=== PATIENT | male | born 1960 | race Caucasian/White ===

== ENCOUNTER 2017-09-24 09:44 | Day surgery (SDC) | payer BC ==
[2017-09-24] MEDS ORDERED: PROPOFOL 10 MG/ML VIAL IV ONE (09:45)
[2017-09-24] MEDS ORDERED: LIDOCAINE 2% MDV (20MG/ML) 20ML VIAL IV ONE (09:45)
--- NOTE | 2017-09-28 07:20 | Operative Note ---
DATE OF SURGERY: 09/24/2017 REQUESTING PHYSICIAN: Ericka Grimes MD, FACP SURGEON: Paco Reina MD POSTOPERATIVE DIAGNOSES: 1. A 3 mm sessile polyp in the descending colon that was removed by cold biopsy forceps. 2. Left-sided colonic diverticulosis. OPERATION: COLONOSCOPY and exam. REASON FOR PROCEDURE: This is a 56-year-old male with average risk for colorectal cancer who presented for screening colonoscopy. SEDATION: Sedation as per anesthesia. Pulse oximetry was monitored throughout the duration of the procedure to maintain O2 saturation of 90% or greater. Supplemental oxygen was administered via nasal cannula. Cardiac and vital signs were monitored throughout the duration of the procedure and they were stable. PROCEDURE: Description of the procedure of colonoscopy, risks, and alternatives to the procedure including the risk of bleeding and perforation among others were explained to the patient who voiced understanding and agreed to have the procedure done. A physical examination was performed and the patient was found stable for sedation. The patient was then placed in the left lateral position and sedation was initiated. Digital rectal exam was performed and showed small external hemorrhoids with no palpable rectal masses. A lubricated Olympus PCF-180AL colonoscope was then inserted into the rectum under direct visualization and was advanced to the cecum without difficulty. The ileocecal valve and appendiceal orifice were identified and photographed. The colonic mucosa was carefully examined upon insertion of the colonoscope. There were scattered diverticula noted in the sigmoid and descending colon. In the descending colon was a 3 mm sessile polyp that was noted and was removed by cold biopsy forceps. The bowel preparation was good. The colonoscope was then withdrawn while carefully examining the colonic mucosal surfaces. No other lesions were noted. In the rectum, retroflexion was performed and grade 1 internal hemorrhoids were noted. The colonoscope was then withdrawn and the procedure was terminated. The patient tolerated the procedure well without any complications. The patient remained with stable vital signs and was sent to the recovery room. PLAN AND RECOMMENDATIONS: 1. The patient is to be on a high-fiber diet. 2. The patient is to have repeat colonoscopy in 5 or 10 years depending on the histology of the polyp. Thank you for allowing me to participate in the care of this patient. CC: ERICKA GRIMES MD, FACP [facility]ALSatya
== END 2017-09-24 11:28 | disposition home or self-care (01) ==
LOC: HOP 09:44
PROVIDERS: ATTEND Internal Medicine Gastroenterology
DX: Z12.11 Encounter for screening for malignant neoplasm of colon (principal); D12.4 Benign neoplasm of descending colon; K57.30 Diverticulosis of large intestine without perforation or abscess without bleeding; E78.00 Pure hypercholesterolemia, unspecified; I10 Essential (primary) hypertension

== ENCOUNTER 2019-02-14 22:52 | Emergency (ER) | payer BC ==
[2019-02-14] MEDS ORDERED: CLINDAMYCIN 600MG/50ML PREMIX 600 MG/50 ML BAG IVPB ONE (22:56)
[2019-02-14] MEDS ORDERED: ONDANSETRON HCL IV 4 MG/2 ML VIAL IVP ONE (22:58)
[2019-02-14] MEDS ORDERED: 0.9 % SODIUM CHLORIDE 1000ML 1,000 ML IV SCH (23:00)
--- NOTE | 2019-02-14 23:02 | Emergency Department Record ---
History of Present Illness - General Chief Complaint: Syncope Stated Complaint: VOMITING,HEART RACING,LOC Time Seen by Provider: 02/14/19 22:55 Source: Patient, Family Mode of Arrival: Wheelchair Limitations: Altered mental status (Intoxicated) - History of Present Illness Initial Comments: 58 yo male presents to ED for evaluation of difficulty in breathing. Patient's reports that the patient drank several beers this evening (not abnormal for the patient), went into the bathroom as he felt dizzy and that he might vomit. SO reports that the patient started vomiting, lowered to the ground, vomited again and breathed in some vomit. SO reports that the patient was then brought to ED for evaluation. Patient denies headache or anticoagulation use, does report history of HTN, reports RLE calf pain for 2 months, no history of DVT previously. MD Complaint: Collapsed Injuries Sustained Associated with Event: None Current Symptoms: Nausea, Vertigo, Shortness of breath Treatments Prior to Arrival: None - Zachariah Coma Scale Eye Response: (4) Open spontaneously Motor Response: (6) Obeys commands Verbal Response: (5) Oriented [place] Total: 15 - Related Data Previous Rx's Medication Instructions Recorded Amoxicillin/Potassium Clav 1 each PO BID #20 tablet 11/25/15 [Augmentin 875Mg/125Mg] Allergies Allergy/AdvReac Type Severity Reaction Status Date / Time No Known Drug Intolerances Allergy Unknown PT UNSURE Verified 02/14/19 23:02 OF REACTION Review of Systems ROS unobtainable: Due to mental status Past Medical History - SOCIAL HISTORY Smoking Status: Never smoker Alcohol Use Comment: moderate - RESPIRATORY Hx Respiratory Disorders: Yes Hx Sleep Apnea: Yes Hx of CPAP: Yes - CARDIOVASCULAR Hx Cardio Disorders: Yes Hx Hypertension: Yes (well controlled with meds) Comment:: high cholesterol - NEURO Hx Neuro Disorders: No - GI Hx GI Disorders: Yes Hx Diverticulitis: Yes Hx Reflux: Yes (hx of) Hx Rectal Bleeding: Yes - Hx Genitourinary Disorders: No - ENDOCRINE Hx Endocrine Disorders: No - MUSCULOSKELETAL Hx Musculoskeletal Disorders: Yes Hx Arthritis: Yes - PSYCH Hx Psych Problems: Yes Hx Depression: Yes (job change) - HEMATOLOGY/ONCOLOGY Hx Hematology/Oncology Disorders: No Family Medical History Hx Cancer: Father *Cancer Comment: prostate Hx Heart Disease: Father, Brother/Sister Physical Exam - General General Appearance: Alert, Cooperative, Moderate distress Limitations: Altered mental status (Intoxicated on examination) - Head Head exam: Atraumatic, Normocephalic, Normal inspection Head exam detail: negative: Abrasion, Contusion, Mayes's sign, General tenderness, Hematoma, Laceration - Eye Eye exam: Normal appearance. negative: Conjunctival injection, Periorbital swelling, Periorbital tenderness, Scleral icterus - ENT Ear exam: negative: Auricular hematoma, Auricular trauma Nasal Exam: negative: Active bleeding, Discharge, Dried blood, Foreign body Mouth exam: negative: Drooling, Laceration, Muffled voice, Tongue elevation - Neck Neck exam: Normal inspection. negative: Meningismus, Tenderness - Respiratory Respiratory exam: Decreased breath sounds, Respiratory distress. negative: Rales, Rhonchi, Stridor - Cardiovascular Cardiovascular Exam: Regular rate, Normal rhythm, Normal heart sounds - GI/Abdominal GI/Abdominal exam: Soft. negative: Rebound, Rigid, Tenderness - Rectal Rectal exam: Deferred - exam: Deferred - Extremities Extremities exam: negative: Pedal edema, Tenderness - Back Back exam: Denies: CVA tenderness (R), CVA tenderness (L) - Neurological Neurological exam: Alert. negative: Motor sensory deficit - Psychiatric Psychiatric exam: Normal affect, Normal mood - Skin Skin exam: Normal color. negative: Abrasion Type of lesion: negative: abrasion Course - Reevaluation(s) Reevaluation #1: 02/14/19 23:01 Patient started on NRB at 15 Liters, oxygen saturation 93% at this time. Portable chest ordered and being performed at this time. IVFs, Clindamycin ordered to infuse. Laboratory studies sent to lab. Will monitor closely for the need for further airway intervention. 02/14/19 23:07 EKG: NSR 81 Normal axis, normal intervals No acute ST-T wave changes Reevaluation #2: 02/14/19 23:30 Laboratory studies were reviewed and appear grossly unremarkable for an acute process. Patient and his SO were updated on all results, STAT CT Brain and CTA Chest ordered to exclude PE. Reevaluation #3: 02/15/19 00:06 CT Head and CTA chest were reviewed personally, no evidence for intracranial bleed: CTA Chest: No evidence for PE, bilateral interstitial processes appear present L>R. Geoffrey contacted for ICU bed placement. Reevaluation #4: 02/15/19 00:22 CT Head: No acute intracranial injury CTA Chest: No PE Findings appear c/w broncho-pulmonary pneumonia Zosyn ordered to infuse following Clindamycin, case was discussed with Dr. Pinon, will accept admission to ICU. Awaiting bed placement. Medical Decision Making - Lab Data Result diagrams: 02/14/19 22:55 02/14/19 22:55 Critical Care Time Critical Care Time: Yes Total Critical Care Time: 90 Critical Care Time: Diagnosis and treatment of aspiration pneumonia, exclusion of acute intra- cranial bleed/PE, laboratory interpretation, CT imaging interpretation, EKG in terpretation, and arrangement of transfer for ICU admission, frequent updates with the patient's SO, frequent reassessments. Disposition Disposition: Transfer Clinical Impression: Hypoxia Aspiration pneumonia Qualifiers: Aspiration pneumonia type: unspecified Laterality: bilateral Lung location: unspecified part of lung Qualified Code(s): J69.0 - Pneumonitis due to inhalation of food and vomit Disposition: Acute Care Hospital Transfer Transfer To: [facility] Reason For Transfer: ICU admission Accepting Physician: Kathrin Time Discussed w/Accepting Physician: 00:25 Condition: (3) Guarded Forms: Patient Portal Access Time of Disposition: 00:25 Quality - Quality Measures Quality Measures: N/A - Blood Pressure Screening Does Patient Have Any of the Following: No Blood Pressure Classification: Normal BP Reading Systolic Measurement: 112 Diastolic Measurement: 75 Screening for High Blood Pressure: < Normal BP, F/U Not Required > [G8783]
[2019-02-14 23:09] LABS: ABSOLUTE NEUTROPHIL COUNT 4.82; BASO % 0.1 % (0-6); EOS % 0.9 % (0-6); GRAN % 72.3 % (47-80); HEMATOCRIT 45.2 % (42.0-52.0); HEMOGLOBIN 16.2 gm/dl (14.0-18.0); LYMPH % 19.5 % (16-45); MEAN CORPUSCULAR HEMOGLOBIN 33.3 pg (27-33); MEAN CORPUSCULAR HGB CONC 35.8 g/dl (32-36); MEAN PLATELET VOLUME 10.3 fl (7.4-10.4); MONO % 7.2 % (0-9); PLATELET COUNT 247 K/uL (130-400); RED BLOOD COUNT 4.86 M/uL (4.40-5.70); RED CELL DISTRIBUTION WIDTH 12.1 % (11.5-14.5); WHITE BLOOD COUNT W/O DIFF 6.7 K/uL (4.2-12.2)
[2019-02-14 23:18] LABS: BLOOD UREA NITROGEN 12 mg/dL (6-20); CREATININE 1.2 mg/dL (0.7-1.2); EST GLOMERULAR FILTRATION RATE > 60 mL/min; TOTAL PROTEIN 7.4 g/dL (6.6-8.7)
[2019-02-14 23:20] LABS: GLUCOSE,RANDOM 133 mg/dL (74-109)
[2019-02-14 23:23] LABS: ALB/GLOB RATIO 1.6 (1.1-1.8); ALBUMIN 4.5 g/dL (4.0-5.0); ALT/SGPT 48 U/L (<41); AST/SGOT 33 U/L (10.0-50.0)
[2019-02-14 23:29] LABS: ALKALINE PHOSPHATASE 75 U/L (40-129)
[2019-02-15] MEDS ORDERED: PIPERACILLIN SODIUM/TAZOBACTAM 4.5 GM in 0.9 % SODIUM CHLORIDE 100ML 100 ML IVPB ONE (00:15)
--- NOTE | 2019-02-15 14:25 | RADIOLOGY REPORT ---
EXAM: PORTABLE CHEST HISTORY: SYNCOPE WITH VOMITING. COUGH. TECHNIQUE: A single mobile view of the chest was obtained. Comparison: None. FINDINGS: The heart projects at the upper limits of normal in size. No pulmonary venous hypertension is seen. Mixed reticulonodular and alveolar opacities are noted in the perihilar and basilar portions of the left lung and to a lesser degree the right lung base. Diagnostic considerations include pneumonitis and edema. The lungs and pleural spaces are otherwise clear. No acute osseous abnormality. IMPRESSION: MIXED RETICULONODULAR AND ALVEOLAR OPACITIES IN THE PERIHILAR AND BASILAR PORTIONS OF THE LEFT LUNG AND MINOR RETICULONODULAR OPACITIES WITHIN THE RIGHT LUNG BASE. DIAGNOSTIC CONSIDERATIONS INCLUDE PNEUMONIA AND EDEMA. JOB NUMBER: [id number] MTDD
--- NOTE | 2019-02-15 18:50 | CT SCAN REPORT ---
EXAM: CT SCAN HEAD WO CONTRAST HISTORY: DIFFICULTY IN BREATHING. POSSIBLE ASPIRATION. TECHNIQUE: Routine noncontrast CT of the brain. COMPARISON: None. FINDINGS: The ventricles and subarachnoid spaces are normal in size. No area of abnormally increased or decreased attenuation is noted throughout the brain substance. No convincing abnormal extra-axial fluid collection. No acute skull abnormality. There is minor mucosal thickening within the maxillary sinuses and several bilateral ethmoid air cells. The orbits, as visualized, are unremarkable. IMPRESSION: 1. NO CT EVIDENCE OF ACUTE INTRACRANIAL ABNORMALITY NOR SKULL FRACTURE. 2. MINOR MUCOSAL THICKENING IN SEVERAL PARANASAL SINUSES. JOB NUMBER: [id number]
--- NOTE | 2019-02-15 19:39 | CT ANGIOGRAM REPORT ---
EXAM: CT ANGIOGRAM CHEST CTA w contrast HISTORY: SYNCOPE AND VOMITING WITH HYPOXIA. POSSIBLE ASPIRATION. TECHNIQUE: Routine CTA examination of the chest is performed utilizing a pulmonary embolus protocol with 84 mL of Isovue-350 utilized. Maximum intensity projection reformatted images are generated and reviewed. COMPARISON: Portable chest dated 02/14/2019 at 23:09. FINDINGS: Opacification of the pulmonary arteries is satisfactory for interpretation though evaluation of the segmental arteries, particularly the lower lobe segmental arteries, is limited by motion artifact. No luminal filling defect is noted in the outflow tract, main arteries, lobar arteries, or the proximal segmental arteries that are unaffected by respiratory motion to suggest acute pulmonary embolic disease. The heart is not enlarged. There is moderate atherosclerotic calcification of the coronary arteries. The thoracic aorta is without aneurysmal dilatation nor dissection. The arch branch vessels are patent. No definite mediastinal nor hilar mass/lymphadenopathy is seen. Mixed reticulonodular and alveolar opacities are scattered throughout the left lung with sparing of the apex. Similar though less pronounced opacities are scattered within the mid to lower right lung. No pleural or pericardial effusion. The adrenal glands are not enlarged. There is decreased density of the liver relative to the spleen consistent with steatosis. Additionally, there is a low-density mass in the medial aspect of the right liver lobe (segment 6) measuring 2.3 x 2.5 x 1.8 cm. This has fluid density and is consistent with a cyst. No lytic or blastic bone lesion. IMPRESSION: 1. NO CTA EVIDENCE OF ACUTE PULMONARY EMBOLIC DISEASE THOUGH EVALUATION OF SEGMENTAL ARTERIES IS LIMITED AT SEVERAL LEVELS BY MOTION ARTIFACT. 2. MIXED RETICULONODULAR AND ALVEOLAR OPACITIES SCATTERED WITHIN EACH LUNG, LEFT GREATER THAN RIGHT, SUSPICIOUS FOR BRONCHOPNEUMONIA, EDEMA, OR LESS LIKELY ASPIRATION. 3. MODERATE BILATERAL CORONARY ARTERY CALCIFICATION. 4. DIFFUSE HEPATIC STEATOSIS. RIGHT LIVER LOBE CYST. JOB [facility]BER: [id number] [facility]
== END 2019-02-15 01:50 | disposition short-term general hospital (02) ==
LOC: ER 22:52
DX: J69.0 Pneumonitis due to inhalation of food and vomit (principal); R06.02 Shortness of breath; R42 Dizziness and giddiness; M79.661 Pain in right lower leg; I10 Essential (primary) hypertension
CPT/HCPCS: 70450; 71045; 71275; 80053; 80320; 84484; 85025; 93005; 93010; 96365; 96366; 96375; 99291; 99292; J2405; J2543; J7030